=== PATIENT | female | born 1990 | race Caucasian/White ===

== ENCOUNTER 2018-01-01 00:15 | Day surgery (SDC) | payer BC ==
[~2018-01-01] VITALS: Ht 160 cm; Wt 69.4 kg
[2018-01-01] VITALS (7 sets, daily range): BP systolic 87–109; BP diastolic 55–68
[~2018-01-01 00:15] MED LIST: ACET-1966 PO; ALPR-429 PO; CLIN40GE2 TP; DEXL60CA6 PO; LEVO5TAB28 PO; NORE1TAB61 PO; NORE1TAB68 PO
[2018-01-01] MEDS ORDERED: MIDAZOLAM 2 MG/2 ML VIAL IVP PRN (11:50)
[2018-01-01] MEDS ORDERED: LIDOCAINE/SOD BICARB 8.4% SYR ID ONE ×2 (11:50)
[2018-01-01] MEDS ORDERED: NORMOSOL R SOLN(*) 1000 ML BAG 1,000 ML IV PRN ×2 (11:50)
[2018-01-01] MEDS ORDERED: PROPOFOL EMUL(*) 10MG/ML 20 ML 60 ML ONE (16:39)
== END 2018-01-01 15:25 | disposition home or self-care (01) ==
LOC: OR 00:15
PROVIDERS: ATTEND Internal Medicine Gastroenterology
DX: K20.9 Esophagitis, unspecified (principal); K44.9 Diaphragmatic hernia without obstruction or gangrene; K29.70 Gastritis, unspecified, without bleeding
CPT/HCPCS: 43239; 43248; 88305; 88313; 88344; J2250; J2704